=== PATIENT | female | born 1990 | race Caucasian/White ===

== ENCOUNTER 2016-02-27 10:56 | Emergency (ER) | payer MEDICAID ==
[2015-11-14 07:30] VITALS: BMI 18.4
[~2016-02-27 10:56] MED LIST: DILAUDID2 MG PO; HYDROCODON-ACE1 EAC7 PO; IBUPROFEN600 MG PO; KLONOPIN0.5 MG PO; PRENATAL COMPLE1 TAB PO; ZOLOFT50 MG PO
== END 2016-02-27 12:14 | disposition home or self-care (01) ==
LOC: D.ER 10:56
DX: H60.92 Unspecified otitis externa, left ear (principal)

== ENCOUNTER 2016-02-29 06:57 | Emergency (ER) | payer SELFPAY ==
[2015-11-14 07:30] VITALS: BMI 18.4
== END 2016-02-29 08:11 | disposition home or self-care (01) ==
LOC: D.ER 06:57
DX: H60.92 Unspecified otitis externa, left ear (principal); F41.9 Anxiety disorder, unspecified; F17.200 Nicotine dependence, unspecified, uncomplicated

== ENCOUNTER 2016-03-08 11:02 | Emergency (ER) | payer SELFPAY ==
[2015-11-14 07:30] VITALS: BMI 18.4
== END 2016-03-08 12:45 | disposition home or self-care (01) ==
LOC: D.ER 11:02
DX: H60.502 Unspecified acute noninfective otitis externa, left ear (principal); F41.9 Anxiety disorder, unspecified

== ENCOUNTER 2016-03-26 19:28 | Emergency (ER) | payer SELFPAY ==
[2015-11-14 07:30] VITALS: BMI 18.4
[2016-03-26 20:24] LABS: BASOPHILS 0.2 % (0.0-2.0); EOSINOPHILS 6.2 % (0-7); HEMATOCRIT 38.9 % (36.0-48.0); HEMOGLOBIN 12.6 g/dL (12-16); IMMATURE GRANULOCYTES 0.3 % (0-5); MCH 29.2 pg (26.0-34.0); MCHC 32.4 g/dL (31.0-37.0); MEAN PLATELET VOLUME 10.9 fL (7.4-10.4); MONOCYTES 5.7 % (2-11); NEUTROPHILS 60.6 % (40-80); PLATELET COUNT 249 10x3/uL (130-400); RBC 4.32 10x6/uL (4.00-5.40); RDW 14.1 % (11.5-14.5); WBC 16.1 10x3/uL (4.8-10.8)
[2016-03-26 20:28] LABS: APPEARANCE HAZY (CLEAR); BILIRUBIN NEGATIVE (NEGATIVE); COLOR YELLOW (YELLOW); GLUCOSE NEGATIVE (NEGATIVE); KETONE NEGATIVE (NEGATIVE); LEUKOCYTE ESTERASE 1+ (NEGATIVE); NITRITE NEGATIVE (NEGATIVE); PROTEIN NEGATIVE (NEGATIVE); SPECIFIC GRAVITY 1.015 (1.005-1.020); UROBILINOGEN NORMAL (NORMAL)
[2016-03-26 20:30] LABS: RED CELLS - URINE 0-5 /hpf (0-5)
[2016-03-26 20:31] LABS: AMORPHOUS SEDIMENT <1+ /lpf (NONE SEEN); BACTERIA MODERATE /hpf (NONE SEEN); EPITHELIAL CELLS 0-5 /hpf (0-5); MUCUS >1+ /lpf (NONE SEEN)
[2016-03-26 20:47] LABS: ALBUMIN 3.8 g/dL (3.4-5.0); ALKALINE PHOSPHATASE 77 U/L (46-116); ALT (SGPT) 16 U/L (10-68); AMYLASE - SERUM 42 U/L (25-115); BILIRUBIN - TOTAL 0.14 mg/dL (0.2-1.3); CALC OSMOLALITY 279 mosm/kg (275-300); CALCIUM 9.1 mg/dL (8.5-10.1); CHLORIDE - SERUM 105 mmol/L (98-107); CREATININE - SERUM 0.7 mg/dL (0.6-1.3); GLUCOSE 103 mg/dL (74-106); LIPASE 182 U/L (73-393); POTASSIUM - SERUM 4.2 mmol/L (3.5-5.1); PROTEIN - SERUM 7.4 g/dL (6.4-8.2); SODIUM 139 mmol/L (136-145); UREA NITROGEN 18 mg/dL (7-18); eGFR NON AFRICAN AMERICAN > 90 mL/min (90-120)
== END 2016-03-26 21:37 | disposition home or self-care (01) ==
LOC: D.ER 19:28
PROVIDERS: Emergency Medicine
DX: N39.0 Urinary tract infection, site not specified (principal); J02.9 Acute pharyngitis, unspecified; F41.9 Anxiety disorder, unspecified; F17.200 Nicotine dependence, unspecified, uncomplicated

== ENCOUNTER 2016-04-01 12:49 | Emergency (ER) | payer SELFPAY ==
[2015-11-14 07:30] VITALS: BMI 18.4
[2016-04-01 14:07] LABS: APPEARANCE SLT CLOUDY (CLEAR); BACTERIA FEW /hpf (NONE SEEN); BILIRUBIN NEGATIVE (NEGATIVE); COLOR STRAW (YELLOW); EPITHELIAL CELLS 0-5 /hpf (0-5); GLUCOSE NEGATIVE (NEGATIVE); KETONE NEGATIVE (NEGATIVE); LEUKOCYTE ESTERASE 2+ (NEGATIVE); MUCUS <1+ /lpf (NONE SEEN); NITRITE NEGATIVE (NEGATIVE); PROTEIN NEGATIVE (NEGATIVE); UROBILINOGEN NORMAL (NORMAL); WHITE CELLS - URINE 0-5 /hpf (0-5)
[2016-04-01 17:20] LABS: HCG URINE NEGATIVE (NEGATIVE)
== END 2016-04-01 18:32 | disposition home or self-care (01) ==
LOC: D.ER 12:49
PROVIDERS: Emergency Medicine
DX: N20.1 Calculus of ureter (principal); N39.0 Urinary tract infection, site not specified; F17.200 Nicotine dependence, unspecified, uncomplicated; F41.9 Anxiety disorder, unspecified

== ENCOUNTER 2016-05-14 12:34 | Emergency (ER) | payer SELFPAY ==
[2015-11-14 07:30] VITALS: BMI 18.4
[2016-05-14 14:13] LABS: BASOPHILS 0.2 % (0.0-2.0); EOSINOPHILS 4.8 % (0-7); HEMATOCRIT 40.2 % (36.0-48.0); HEMOGLOBIN 13.1 g/dL (12-16); IMMATURE GRANULOCYTES 0.1 % (0-5); MCH 28.3 pg (26.0-34.0); MCHC 32.6 g/dL (31.0-37.0); MCV 86.8 fL (80.0-100.0); MEAN PLATELET VOLUME 10.6 fL (7.4-10.4); MONOCYTES 4.5 % (2-11); NEUTROPHILS 70.4 % (40-80); PLATELET COUNT 225 10x3/uL (130-400); RBC 4.63 10x6/uL (4.00-5.40); RDW 14.2 % (11.5-14.5); WBC 13.7 10x3/uL (4.8-10.8)
[2016-05-14 14:27] LABS: ALBUMIN 3.8 g/dL (3.4-5.0); ALKALINE PHOSPHATASE 82 U/L (46-116); ALT (SGPT) 20 U/L (10-68); BILIRUBIN - TOTAL 0.28 mg/dL (0.2-1.3); CALC OSMOLALITY 274 mosm/kg (275-300); CALCIUM 9.1 mg/dL (8.5-10.1); CHLORIDE - SERUM 103 mmol/L (98-107); CREATININE - SERUM 0.7 mg/dL (0.6-1.3); GLUCOSE 113 mg/dL (74-106); POTASSIUM - SERUM 3.8 mmol/L (3.5-5.1); PROTEIN - SERUM 7.9 g/dL (6.4-8.2); SODIUM 138 mmol/L (136-145); UREA NITROGEN 7 mg/dL (7-18); eGFR NON AFRICAN AMERICAN > 90 mL/min (90-120)
[2016-05-14 16:21] LABS: APPEARANCE CLOUDY (CLEAR); BILIRUBIN NEGATIVE (NEGATIVE); COLOR STRAW (YELLOW); GLUCOSE NEGATIVE (NEGATIVE); KETONE NEGATIVE (NEGATIVE); LEUKOCYTE ESTERASE 2+ (NEGATIVE); NITRITE NEGATIVE (NEGATIVE); PROTEIN TRACE mg/dL (NEGATIVE); UROBILINOGEN NORMAL (NORMAL)
[2016-05-14 16:22] LABS: HCG URINE NEGATIVE (NEGATIVE)
[2016-05-14 16:26] LABS: BACTERIA FEW /hpf (NONE SEEN); YEAST <1+ /hpf (NONE SEEN)
== END 2016-05-14 18:10 | disposition home or self-care (01) ==
LOC: D.ER 12:34
PROVIDERS: Family Medicine; Physician Assistant Medical
DX: N39.0 Urinary tract infection, site not specified (principal); J04.10 Acute tracheitis without obstruction; F17.200 Nicotine dependence, unspecified, uncomplicated

== ENCOUNTER 2016-06-16 11:52 | Emergency (ER) | payer SELFPAY ==
[2015-11-14 07:30] VITALS: BMI 18.4
== END 2016-06-16 13:10 | disposition home or self-care (01) ==
LOC: D.ER 11:52
DX: S93.402A Sprain of unspecified ligament of left ankle, initial encounter (principal); X58.XXXA Exposure to other specified factors, initial encounter; Y93.89 Activity, other specified; Y92.89 Other specified places as the place of occurrence of the external cause; F41.9 Anxiety disorder, unspecified

== ENCOUNTER 2016-07-12 09:00 | Emergency (ER) | payer SELFPAY ==
[2015-11-14 07:30] VITALS: BMI 18.4
[2016-07-12 09:49] LABS: BASOPHILS 0.3 % (0-2); EOSINOPHILS 6.5 % (0-7); HEMATOCRIT 41.8 % (36.0-48.0); HEMOGLOBIN 13.7 g/dL (12-16); IMMATURE GRANULOCYTES 0.3 % (0-5); LYMPHOCYTES 16.6 % (15-50); MCH 28.9 pg (26.0-34.0); MCHC 32.8 g/dL (31.0-37.0); MCV 88.2 fL (80.0-100.0); MEAN PLATELET VOLUME 10.7 fL (7.4-10.4); MONOCYTES 4.1 % (2-11); NEUTROPHILS 72.2 % (40-80); PLATELET COUNT 235 10x3/uL (130-400); RBC 4.74 10x6/uL (4.00-5.40); RDW 14.5 % (11.5-14.5); WBC 13.9 10x3/uL (4.8-10.8)
[2016-07-12 09:53] LABS: APPEARANCE HAZY (CLEAR); BILIRUBIN NEGATIVE (NEGATIVE); COLOR YELLOW (YELLOW); GLUCOSE NEGATIVE (NEGATIVE); KETONE NEGATIVE (NEGATIVE); LEUKOCYTE ESTERASE 2+ (NEGATIVE); NITRITE NEGATIVE (NEGATIVE); PROTEIN NEGATIVE (NEGATIVE); SPECIFIC GRAVITY 1.005 (1.005-1.020); UROBILINOGEN NORMAL (NORMAL)
[2016-07-12 09:54] LABS: BACTERIA MODERATE /hpf (NONE SEEN); MUCUS <1+ /lpf (NONE SEEN)
[2016-07-12 10:02] LABS: ALBUMIN 3.4 g/dL (3.4-5.0); ALKALINE PHOSPHATASE 78 U/L (46-116); ALT (SGPT) 21 U/L (10-68); BILIRUBIN - TOTAL 0.18 mg/dL (0.2-1.3); CALC OSMOLALITY 272 mosm/kg (275-300); CALCIUM 8.7 mg/dL (8.5-10.1); CARBON DIOXIDE 23.7 mmol/L (21.0-32.0); CHLORIDE - SERUM 105 mmol/L (98-107); CREATININE - SERUM 0.7 mg/dL (0.6-1.3); GLUCOSE 94 mg/dL (74-106); POTASSIUM - SERUM 4.1 mmol/L (3.5-5.1); PROTEIN - SERUM 7.2 g/dL (6.4-8.2); SODIUM 137 mmol/L (136-145); UREA NITROGEN 9 mg/dL (7-18); eGFR NON AFRICAN AMERICAN > 90 mL/min (90-120)
[2016-07-12 10:19] LABS: HCG SERUM NEGATIVE (NEGATIVE)
== END 2016-07-12 10:57 | disposition home or self-care (01) ==
LOC: D.ER 09:00
PROVIDERS: Emergency Medicine
DX: N39.0 Urinary tract infection, site not specified (principal); N23 Unspecified renal colic; F17.200 Nicotine dependence, unspecified, uncomplicated

== ENCOUNTER 2016-08-16 10:20 | Emergency (ER) | payer SELFPAY ==
[2015-11-14 07:30] VITALS: BMI 18.4
== END 2016-08-16 11:51 | disposition home or self-care (01) ==
LOC: D.ER 10:20
DX: S39.012A Strain of muscle, fascia and tendon of lower back, initial encounter (principal); X58.XXXA Exposure to other specified factors, initial encounter; M62.830 Muscle spasm of back; F17.200 Nicotine dependence, unspecified, uncomplicated

== ENCOUNTER 2016-08-22 08:50 | Emergency (ER) | payer SELFPAY ==
[2015-11-14 07:30] VITALS: BMI 18.4
== END 2016-08-22 10:13 | disposition home or self-care (01) ==
LOC: D.ER 08:50
DX: M54.6 Pain in thoracic spine (principal)

== ENCOUNTER 2016-09-06 09:33 | Emergency (ER) | payer SELFPAY ==
[2015-11-14 07:30] VITALS: BMI 18.4
[2016-09-06 10:10] LABS: APPEARANCE CLOUDY (CLEAR); BILIRUBIN NEGATIVE (NEGATIVE); COLOR YELLOW (YELLOW); GLUCOSE NEGATIVE (NEGATIVE); KETONE NEGATIVE (NEGATIVE); LEUKOCYTE ESTERASE 2+ (NEGATIVE); NITRITE NEGATIVE (NEGATIVE); PROTEIN NEGATIVE (NEGATIVE); SPECIFIC GRAVITY 1.015 (1.005-1.020); UROBILINOGEN NORMAL (NORMAL)
[2016-09-06 10:19] LABS: WHITE CELLS - URINE 25-50 /hpf (0-5)
[2016-09-06 10:19] LABS: BASOPHILS 0.2 % (0-2); EOSINOPHILS 3.6 % (0-7); HEMATOCRIT 41.6 % (36.0-48.0); HEMOGLOBIN 13.8 g/dL (12-16); IMMATURE GRANULOCYTES 0.4 % (0-5); LYMPHOCYTES 12.9 % (15-50); MCH 29.3 pg (26.0-34.0); MCHC 33.2 g/dL (31.0-37.0); MCV 88.3 fL (80.0-100.0); MEAN PLATELET VOLUME 10.9 fL (7.4-10.4); MONOCYTES 5.6 % (2-11); NEUTROPHILS 77.3 % (40-80); PLATELET COUNT 236 10x3/uL (130-400); RBC 4.71 10x6/uL (4.00-5.40); WBC 16.1 10x3/uL (4.8-10.8)
[2016-09-06 10:20] LABS: BACTERIA MANY /hpf (NONE SEEN); HYALINE CAST OCC /lpf (NONE SEEN); MUCUS >1+ /lpf (NONE SEEN); RED CELLS - URINE 0-5 /hpf (0-5); YEAST >1+ /hpf (NONE SEEN)
[2016-09-06 10:37] LABS: ALBUMIN 3.6 g/dL (3.4-5.0); ALKALINE PHOSPHATASE 75 U/L (46-116); ALT (SGPT) 37 U/L (10-68); CALC OSMOLALITY 272 mosm/kg (275-300); CALCIUM 8.9 mg/dL (8.5-10.1); CARBON DIOXIDE 19.8 mmol/L (21.0-32.0); CHLORIDE - SERUM 105 mmol/L (98-107); CREATININE - SERUM 0.6 mg/dL (0.6-1.3); GLUCOSE 107 mg/dL (74-106); POTASSIUM - SERUM 3.9 mmol/L (3.5-5.1); PROTEIN - SERUM 7.8 g/dL (6.4-8.2); SODIUM 137 mmol/L (136-145); UREA NITROGEN 11 mg/dL (7-18); eGFR NON AFRICAN AMERICAN > 90 mL/min (90-120)
== END 2016-09-06 12:02 | disposition home or self-care (01) ==
LOC: D.ER 09:33
PROVIDERS: Emergency Medicine
DX: N10 Acute pyelonephritis (principal); R50.9 Fever, unspecified; R11.2 Nausea with vomiting, unspecified

== ENCOUNTER 2016-09-20 16:54 | Emergency (ER) | payer SELFPAY ==
[2015-11-14 07:30] VITALS: BMI 18.4
== END 2016-09-20 19:08 | disposition home or self-care (01) ==
LOC: D.ER 16:54
DX: S60.212A Contusion of left wrist, initial encounter (principal); W01.0XXA Fall on same level from slipping, tripping and stumbling without subsequent striking against object, initial encounter; Y93.89 Activity, other specified; Y92.89 Other specified places as the place of occurrence of the external cause

== ENCOUNTER 2016-10-12 11:54 | Emergency (ER) | payer SELFPAY ==
[2015-11-14 07:30] VITALS: BMI 18.4
[2016-10-12 12:33] LABS: BASOPHILS 0.4 % (0-2); EOSINOPHILS 6.2 % (0-7); HEMATOCRIT 39.2 % (36.0-48.0); IMMATURE GRANULOCYTES 0.2 % (0-5); LYMPHOCYTES 26.8 % (15-50); MCH 29.7 pg (26.0-34.0); MCHC 33.2 g/dL (31.0-37.0); MCV 89.5 fL (80.0-100.0); MEAN PLATELET VOLUME 10.8 fL (7.4-10.4); MONOCYTES 3.5 % (2-11); NEUTROPHILS 62.9 % (40-80); PLATELET COUNT 249 10x3/uL (130-400); RBC 4.38 10x6/uL (4.00-5.40)
[2016-10-12 12:50] LABS: ALBUMIN 3.8 g/dL (3.4-5.0); ALKALINE PHOSPHATASE 68 U/L (46-116); ALT (SGPT) 19 U/L (10-68); CALC OSMOLALITY 276 mosm/kg (275-300); CALCIUM 8.6 mg/dL (8.5-10.1); CARBON DIOXIDE 23.6 mmol/L (21.0-32.0); CHLORIDE - SERUM 104 mmol/L (98-107); CREATININE - SERUM 0.7 mg/dL (0.6-1.3); GLUCOSE 101 mg/dL (74-106); POTASSIUM - SERUM 3.8 mmol/L (3.5-5.1); PROTEIN - SERUM 7.4 g/dL (6.4-8.2); SODIUM 139 mmol/L (136-145); UREA NITROGEN 11 mg/dL (7-18); eGFR NON AFRICAN AMERICAN > 90 mL/min (90-120)
[2016-10-12 13:52] LABS: APPEARANCE CLEAR (CLEAR); BILIRUBIN NEGATIVE (NEGATIVE); COLOR YELLOW (YELLOW); GLUCOSE NEGATIVE (NEGATIVE); KETONE NEGATIVE (NEGATIVE); LEUKOCYTE ESTERASE TRACE (NEGATIVE); NITRITE NEGATIVE (NEGATIVE); PROTEIN NEGATIVE (NEGATIVE); RED CELLS - URINE 0-5 /hpf (0-5); UROBILINOGEN NORMAL (NORMAL); WHITE CELLS - URINE 0-5 /hpf (0-5)
[2016-10-12 13:53] LABS: BACTERIA MODERATE /hpf (NONE SEEN); EPITHELIAL CELLS 0-5 /hpf (0-5); MUCUS <1+ /lpf (NONE SEEN)
[2016-10-12 14:05] LABS: HCG SERUM NEGATIVE (NEGATIVE)
== END 2016-10-12 16:30 | disposition home or self-care (01) ==
LOC: D.ER 11:54
PROVIDERS: Emergency Medicine; Physician Assistant
DX: R10.9 Unspecified abdominal pain (principal); R30.0 Dysuria

== ENCOUNTER 2016-11-04 11:43 | Emergency (ER) | payer SELFPAY ==
[2015-11-14 07:30] VITALS: BMI 18.4
[2016-11-04 13:00] LABS: BASOPHILS 0.2 % (0-2); EOSINOPHILS 9.2 % (0-7); HEMATOCRIT 40.3 % (36.0-48.0); HEMOGLOBIN 13.4 g/dL (12-16); IMMATURE GRANULOCYTES 0.5 % (0-5); LYMPHOCYTES 28.9 % (15-50); MCH 29.7 pg (26.0-34.0); MCHC 33.3 g/dL (31.0-37.0); MCV 89.4 fL (80.0-100.0); MEAN PLATELET VOLUME 11.3 fL (7.4-10.4); MONOCYTES 4.7 % (2-11); NEUTROPHILS 56.5 % (40-80); PLATELET COUNT 205 10x3/uL (130-400); RBC 4.51 10x6/uL (4.00-5.40); RDW 14.3 % (11.5-14.5); WBC 10.8 10x3/uL (4.8-10.8)
[2016-11-04 13:25] LABS: HCG URINE NEGATIVE (NEGATIVE)
[2016-11-04 13:45] LABS: UDS - AMPHET NEGATIVE QUAL (NEGATIVE); UDS - BARB NEGATIVE QUAL (NEGATIVE); UDS - BENZO NEGATIVE QUAL (NEGATIVE); UDS - COCAINE NEGATIVE QUAL (NEGATIVE); UDS - METH NEGATIVE QUAL (NEGATIVE); UDS - OPIATE POSITIVE QUAL (NEGATIVE); UDS - PCP NEGATIVE QUAL (NEGATIVE); UDS - THC NEGATIVE QUAL (NEGATIVE)
[2016-11-04 13:52] LABS: APPEARANCE HAZY (CLEAR); BACTERIA FEW /hpf (NONE SEEN); BILIRUBIN NEGATIVE (NEGATIVE); COLOR YELLOW (YELLOW); EPITHELIAL CELLS 0-5 /hpf (0-5); GLUCOSE NEGATIVE (NEGATIVE); KETONE NEGATIVE (NEGATIVE); LEUKOCYTE ESTERASE TRACE (NEGATIVE); MUCUS >1+ /lpf (NONE SEEN); NITRITE NEGATIVE (NEGATIVE); PROTEIN NEGATIVE (NEGATIVE); RED CELLS - URINE 25-50 /hpf (0-5); SPECIFIC GRAVITY 1.015 (1.005-1.020); UROBILINOGEN NORMAL (NORMAL); WHITE CELLS - URINE 0-5 /hpf (0-5)
[2016-11-04 13:57] LABS: ALBUMIN 3.6 g/dL (3.4-5.0); ALKALINE PHOSPHATASE 71 U/L (46-116); ALT (SGPT) 19 U/L (10-68); BILIRUBIN - TOTAL 0.22 mg/dL (0.2-1.3); CALC OSMOLALITY 274 mosm/kg (275-300); CALCIUM 8.6 mg/dL (8.5-10.1); CARBON DIOXIDE 27.2 mmol/L (21.0-32.0); CHLORIDE - SERUM 104 mmol/L (98-107); CREATININE - SERUM 0.7 mg/dL (0.6-1.3); GLUCOSE 86 mg/dL (74-106); POTASSIUM - SERUM 3.9 mmol/L (3.5-5.1); PROTEIN - SERUM 7.4 g/dL (6.4-8.2); SODIUM 138 mmol/L (136-145); UREA NITROGEN 12 mg/dL (7-18); eGFR NON AFRICAN AMERICAN > 90 mL/min (90-120)
== END 2016-11-04 15:57 | disposition home or self-care (01) ==
LOC: D.ER 11:43
PROVIDERS: Emergency Medicine; Nurse Practitioner Family
DX: M54.5 Low back pain (principal); N39.0 Urinary tract infection, site not specified

== ENCOUNTER 2016-11-30 12:01 | Emergency (ER) | payer SELFPAY ==
[2015-11-14 07:30] VITALS: BMI 18.4
== END 2016-11-30 13:13 | disposition home or self-care (01) ==
LOC: D.ER 12:01
DX: K08.89 Other specified disorders of teeth and supporting structures (principal); K02.9 Dental caries, unspecified

== ENCOUNTER 2017-01-13 11:05 | Emergency (ER) | payer SELFPAY ==
[2015-11-14 07:30] VITALS: BMI 18.4
[2017-01-13 11:57] LABS: APPEARANCE SLT CLOUDY (CLEAR); BILIRUBIN NEGATIVE (NEGATIVE); COLOR DK YELLOW (YELLOW); GLUCOSE NEGATIVE (NEGATIVE); KETONE NEGATIVE (NEGATIVE); NITRITE NEGATIVE (NEGATIVE); PROTEIN NEGATIVE (NEGATIVE); SPECIFIC GRAVITY 1.015 (1.005-1.020); UROBILINOGEN NORMAL (NORMAL)
[2017-01-13 12:04] LABS: BACTERIA MANY /hpf (NONE SEEN); MUCUS >1+ /lpf (NONE SEEN)
== END 2017-01-13 13:20 | disposition home or self-care (01) ==
LOC: D.ER 11:05
PROVIDERS: Emergency Medicine
DX: R10.9 Unspecified abdominal pain (principal); R31.9 Hematuria, unspecified; R11.2 Nausea with vomiting, unspecified; N12 Tubulo-interstitial nephritis, not specified as acute or chronic

== ENCOUNTER 2017-01-14 16:03 | Emergency (ER) | payer SELFPAY ==
[2015-11-14 07:30] VITALS: BMI 18.4
[2017-01-14 16:48] LABS: APPEARANCE SLT CLOUDY (CLEAR); BACTERIA MODERATE /hpf (NONE SEEN); BILIRUBIN NEGATIVE (NEGATIVE); COLOR YELLOW (YELLOW); GLUCOSE NEGATIVE (NEGATIVE); KETONE NEGATIVE (NEGATIVE); NITRITE NEGATIVE (NEGATIVE); PROTEIN NEGATIVE (NEGATIVE); UROBILINOGEN NORMAL (NORMAL)
[2017-01-14 16:49] LABS: MUCUS >1+ /lpf (NONE SEEN); YEAST <1+ /hpf (NONE SEEN)
[2017-01-14 16:50] LABS: BASOPHILS 0.2 % (0-2); EOSINOPHILS 3.2 % (0-7); HEMATOCRIT 41.4 % (36.0-48.0); HEMOGLOBIN 13.7 g/dL (12-16); IMMATURE GRANULOCYTES 0.2 % (0-5); LYMPHOCYTES 24.2 % (15-50); MCH 29.8 pg (26.0-34.0); MCHC 33.1 g/dL (31.0-37.0); MCV 90.2 fL (80.0-100.0); MEAN PLATELET VOLUME 11.3 fL (7.4-10.4); MONOCYTES 4.2 % (2-11); PLATELET COUNT 233 10x3/uL (130-400); RBC 4.59 10x6/uL (4.00-5.40); RDW 13.9 % (11.5-14.5); WBC 13.7 10x3/uL (4.8-10.8)
[2017-01-14 16:52] LABS: UDS - AMPHET NEGATIVE QUAL (NEGATIVE); UDS - BARB NEGATIVE QUAL (NEGATIVE); UDS - BENZO NEGATIVE QUAL (NEGATIVE); UDS - COCAINE NEGATIVE QUAL (NEGATIVE); UDS - OPIATE POSITIVE QUAL (NEGATIVE); UDS - PCP NEGATIVE QUAL (NEGATIVE); UDS - THC NEGATIVE QUAL (NEGATIVE)
[2017-01-14 17:03] LABS: ALKALINE PHOSPHATASE 80 U/L (46-116); ALT (SGPT) 13 U/L (10-68); CALC OSMOLALITY 271 mosm/kg (275-300); CALCIUM 8.6 mg/dL (8.5-10.1); CARBON DIOXIDE 24.7 mmol/L (21.0-32.0); CHLORIDE - SERUM 101 mmol/L (98-107); CREATININE - SERUM 0.9 mg/dL (0.6-1.3); GLUCOSE 96 mg/dL (74-106); POTASSIUM - SERUM 3.5 mmol/L (3.5-5.1); PROTEIN - SERUM 8.3 g/dL (6.4-8.2); SODIUM 135 mmol/L (136-145); UREA NITROGEN 18 mg/dL (7-18); eGFR NON AFRICAN AMERICAN 81 mL/min (90-120)
[2017-01-14 17:05] LABS: HCG SERUM NEGATIVE (NEGATIVE)
== END 2017-01-15 01:14 | disposition home or self-care (01) ==
LOC: D.ER 16:03
PROVIDERS: Emergency Medicine
DX: T40.2X2A Poisoning by other opioids, intentional self-harm, initial encounter (principal); Y92.029 Unspecified place in mobile home as the place of occurrence of the external cause; F33.9 Major depressive disorder, recurrent, unspecified; F11.10 Opioid abuse, uncomplicated; N39.0 Urinary tract infection, site not specified

== ENCOUNTER 2017-03-17 17:28 | Emergency (ER) | payer SELFPAY ==
[2015-11-14 07:30] VITALS: BMI 18.4
[2017-03-17 18:29] LABS: BASOPHILS 0.2 % (0-2); EOSINOPHILS 2.6 % (0-7); HEMATOCRIT 36.8 % (36.0-48.0); IMMATURE GRANULOCYTES 0.4 % (0-5); LYMPHOCYTES 21.9 % (15-50); MCH 28.7 pg (26.0-34.0); MCHC 32.6 g/dL (31.0-37.0); MEAN PLATELET VOLUME 10.7 fL (7.4-10.4); NEUTROPHILS 68.9 % (40-80); PLATELET COUNT 254 10x3/uL (130-400); RBC 4.18 10x6/uL (4.00-5.40); WBC 13.7 10x3/uL (4.8-10.8)
[2017-03-17 18:41] LABS: APPEARANCE CLEAR (CLEAR); BACTERIA FEW /hpf (NONE SEEN); BILIRUBIN NEGATIVE (NEGATIVE); COLOR YELLOW (YELLOW); EPITHELIAL CELLS 0-5 /hpf (0-5); GLUCOSE NEGATIVE (NEGATIVE); KETONE NEGATIVE (NEGATIVE); NITRITE NEGATIVE (NEGATIVE); PROTEIN NEGATIVE (NEGATIVE); RED CELLS - URINE 0-5 /hpf (0-5); UROBILINOGEN NORMAL (NORMAL)
[2017-03-17 18:52] LABS: ALBUMIN 3.6 g/dL (3.4-5.0); ALKALINE PHOSPHATASE 71 U/L (46-116); ALT (SGPT) 20 U/L (10-68); BILIRUBIN - TOTAL 0.21 mg/dL (0.2-1.3); CALC OSMOLALITY 277 mosm/kg (275-300); CALCIUM 8.7 mg/dL (8.5-10.1); CARBON DIOXIDE 26.8 mmol/L (21.0-32.0); CHLORIDE - SERUM 105 mmol/L (98-107); CREATININE - SERUM 0.7 mg/dL (0.6-1.3); GLUCOSE 91 mg/dL (74-106); POTASSIUM - SERUM 3.7 mmol/L (3.5-5.1); PROTEIN - SERUM 7.3 g/dL (6.4-8.2); SODIUM 140 mmol/L (136-145); UREA NITROGEN 9 mg/dL (7-18); eGFR NON AFRICAN AMERICAN > 90 mL/min (90-120)
[2017-03-17 19:22] LABS: HCG - QUANTITATIVE (MATERNAL) 1141 mIU/mL
== END 2017-03-17 22:23 | disposition home or self-care (01) ==
LOC: D.ER 17:28
PROVIDERS: Family Medicine
DX: O26.899 Other specified pregnancy related conditions, unspecified trimester (principal); Z3A.00 Weeks of gestation of pregnancy not specified; R10.31 Right lower quadrant pain

== ENCOUNTER → 2017-06-04 10:52 | Outpatient (CLI) | payer MEDICAID ==
[2015-11-14 07:30] VITALS: BMI 18.4
[2017-06-04 11:28] LABS: BASOPHILS 0.1 % (0-2); EOSINOPHILS 1.3 % (0-7); HEMATOCRIT 35.6 % (36.0-48.0); HEMOGLOBIN 11.9 g/dL (12-16); IMMATURE GRANULOCYTES 0.2 % (0-5); LYMPHOCYTES 19.3 % (15-50); MCH 29.9 pg (26.0-34.0); MCHC 33.4 g/dL (31.0-37.0); MCV 89.4 fL (80.0-100.0); MEAN PLATELET VOLUME 10.8 fL (7.4-10.4); MONOCYTES 4.5 % (2-11); NEUTROPHILS 74.6 % (40-80); PLATELET COUNT 213 10x3/uL (130-400); RBC 3.98 10x6/uL (4.00-5.40); RDW 14.9 % (11.5-14.5); WBC 12.1 10x3/uL (4.8-10.8)
[2017-06-04 11:35] LABS: APPEARANCE HAZY (CLEAR); BACTERIA MODERATE /hpf (NONE SEEN); BILIRUBIN NEGATIVE (NEGATIVE); COLOR YELLOW (YELLOW); GLUCOSE NEGATIVE (NEGATIVE); KETONE NEGATIVE (NEGATIVE); MUCUS >1+ /lpf (NONE SEEN); NITRITE NEGATIVE (NEGATIVE); PROTEIN NEGATIVE (NEGATIVE); RED CELLS - URINE 0-5 /hpf (0-5); SPECIFIC GRAVITY 1.015 (1.005-1.020); UROBILINOGEN NORMAL (NORMAL); YEAST OCC /hpf (NONE SEEN)
== END | disposition home or self-care (01) ==
LOC: D.LDO 10:52
PROVIDERS: Obstetrics & Gynecology
DX: O26.892 Other specified pregnancy related conditions, second trimester (principal); Z3A.16 16 weeks gestation of pregnancy; R55 Syncope and collapse

== ENCOUNTER → 2017-10-23 01:15 | Outpatient (CLI) | payer MEDICAID ==
[2015-11-14 07:30] VITALS: BMI 18.4
[2017-10-23 01:59] LABS: APPEARANCE CLEAR (CLEAR); BILIRUBIN NEGATIVE (NEGATIVE); COLOR YELLOW (YELLOW); GLUCOSE NEGATIVE (NEGATIVE); KETONE NEGATIVE (NEGATIVE); NITRITE NEGATIVE (NEGATIVE); PROTEIN NEGATIVE (NEGATIVE); SPECIFIC GRAVITY 1.015 (1.005-1.020); UROBILINOGEN NORMAL (NORMAL)
[2017-10-23 02:07] LABS: UDS - AMPHET NEGATIVE QUAL (NEGATIVE); UDS - BARB NEGATIVE QUAL (NEGATIVE); UDS - BENZO NEGATIVE QUAL (NEGATIVE); UDS - COCAINE NEGATIVE QUAL (NEGATIVE); UDS - OPIATE NEGATIVE QUAL (NEGATIVE); UDS - PCP NEGATIVE QUAL (NEGATIVE); UDS - THC NEGATIVE QUAL (NEGATIVE)
== END | disposition home or self-care (01) ==
LOC: D.LDO 01:15
PROVIDERS: Obstetrics & Gynecology
DX: O26.893 Other specified pregnancy related conditions, third trimester (principal); Z3A.36 36 weeks gestation of pregnancy; M54.9 Dorsalgia, unspecified; W17.81XA Fall down embankment (hill), initial encounter; Y93.89 Activity, other specified; Y92.89 Other specified places as the place of occurrence of the external cause

== ENCOUNTER → 2017-11-02 15:38 | Outpatient (CLI) | payer MEDICAID ==
[2015-11-14 07:30] VITALS: BMI 18.4
[2017-11-02 16:33] LABS: APPEARANCE CLEAR (CLEAR); BILIRUBIN NEGATIVE (NEGATIVE); COLOR YELLOW (YELLOW); GLUCOSE NEGATIVE (NEGATIVE); KETONE NEGATIVE (NEGATIVE); NITRITE NEGATIVE (NEGATIVE); PROTEIN NEGATIVE (NEGATIVE); SPECIFIC GRAVITY 1.015 (1.005-1.020); UROBILINOGEN NORMAL (NORMAL)
[2017-11-02 16:34] LABS: EPITHELIAL CELLS 0-5 /hpf (0-5); RED CELLS - URINE OCC /hpf (0-5); WHITE CELLS - URINE 0-5 /hpf (0-5)
[2017-11-02 16:35] LABS: BACTERIA FEW /hpf (NONE SEEN)
== END | disposition home or self-care (01) ==
LOC: D.LDO 15:38
PROVIDERS: Obstetrics & Gynecology
DX: O26.893 Other specified pregnancy related conditions, third trimester (principal); Z3A.37 37 weeks gestation of pregnancy

== ENCOUNTER → 2017-11-10 00:42 | Outpatient (CLI) | payer MEDICAID ==
[2015-11-14 07:30] VITALS: BMI 18.4
[~2017-11-10 00:42] MED LIST changes: +ACEROLA C500 MG PO; +ACETAMINOPHEN500 M1 PO; +FERROUS SULFAT325 MG PO; +MOTRIN600 MG PO; +PRENAVITE1 TAB PO
== END | disposition home or self-care (01) ==
LOC: D.LDO 00:42
DX: O26.899 Other specified pregnancy related conditions, unspecified trimester (principal)

== ENCOUNTER 2017-11-11 20:33 | Inpatient (IN) | payer MEDICAID ==
[~2017-11-11] VITALS: Ht 167.6 cm; Wt 120.7 kg
--- NOTE | ~2017-11-11 | OP ---
PATIENT NAME: PRIETO ANDREWS MEDICAL RECORD: [id number] :89 LOCATION:[id number] ADMISSION DATE:11/11/17 SURGEON: JASPREET BOWEN MD DATE OF OPERATION: 11/12/2017 PREDELIVERY DIAGNOSIS: at term. POSTDELIVERY DIAGNOSIS: Mother delivered at term. PROCEDURE: Induction of labor with vaginal delivery. ATTENDING: Jaspreet Bowen MD ANESTHETIC: Continuous lumbar epidural. FINDINGS: Viable male infant in an LIONEL presentation, Apgars of 9 and 9. Weight is 9 pounds 4 ounces. Placenta spontaneous and intact without significant laceration requiring repair. The patient has uterine atony occurring immediately , resolved with Methergine and an oral dose of misoprostol. ESTIMATED BLOOD LOSS: 400 cc. DISPOSITION: Mother and are recovered in the delivery room. TRANSINT:[id number] Voice Confirmation ID: [id number] DOCUMENT ID: [id number] JASPREET BOWEN MD at 1133 CC: [id number] DICTATION DATE: 11/12/17 1407 SCREWMAKER AUTOMATIC: 11/12/17 1415 DIS IN 11/13/17 [facility] [address] [place] [address]
[~2017-11-11 20:33] MED LIST changes: -ACEROLA C500 MG PO; -ACETAMINOPHEN500 M1 PO; -FERROUS SULFAT325 MG PO; -MOTRIN600 MG PO; -PRENAVITE1 TAB PO
[2017-11-11] MEDS ORDERED: PRENAVITE1 TAB PO (20:57)
[2017-11-11 20:58] VITALS: BP 134/83; Ht 167.6 cm; Wt 120.7 kg
[2017-11-11 22:04] LABS: HEMATOCRIT 21.3 % (36.0-48.0); MCHC 32.4 g/dL (31.0-37.0); MCV 86.6 fL (80.0-100.0); MEAN PLATELET VOLUME 11.5 fL (7.4-10.4); RBC 2.46 10x6/uL (4.00-5.40); RDW 15.4 % (11.5-14.5)
[2017-11-11 22:09] LABS: APPEARANCE CLOUDY (CLEAR); BILIRUBIN NEGATIVE (NEGATIVE); COLOR DK YELLOW (YELLOW); GLUCOSE NEGATIVE (NEGATIVE); HEMOGLOBIN 6.9 g/dL (12-16); KETONE NEGATIVE (NEGATIVE); NITRITE NEGATIVE (NEGATIVE); PH 5.5 (5.0-6.0); PROTEIN TRACE mg/dL (NEGATIVE); UROBILINOGEN NORMAL (NORMAL)
[2017-11-11 22:13] LABS: BACTERIA MANY /hpf (NONE SEEN); HYALINE CAST 0-5 /lpf (NONE SEEN)
[2017-11-11 22:43] LABS: HEMATOCRIT 34.7 % (36.0-48.0); HEMOGLOBIN 11.4 g/dL (12-16); MCH 28.3 pg (26.0-34.0); MCHC 32.9 g/dL (31.0-37.0); MCV 86.1 fL (80.0-100.0); MEAN PLATELET VOLUME 11.4 fL (7.4-10.4); RBC 4.03 10x6/uL (4.00-5.40); RDW 15.5 % (11.5-14.5); WBC 12.3 10x3/uL (4.8-10.8)
[2017-11-12 19:38] VITALS: BP 138/63
[2017-11-13 06:46] LABS: HEMATOCRIT 31.1 % (36.0-48.0); MCH 27.9 pg (26.0-34.0); MCHC 32.2 g/dL (31.0-37.0); MCV 86.9 fL (80.0-100.0); MEAN PLATELET VOLUME 11.2 fL (7.4-10.4); RBC 3.58 10x6/uL (4.00-5.40); RDW 15.7 % (11.5-14.5); WBC 12.7 10x3/uL (4.8-10.8)
[2017-11-13] MEDS ORDERED: MOTRIN600 MG PO (13:19)
[2017-11-13] MEDS ORDERED: FERROUS SULFAT325 MG PO (13:19)
[2017-11-13] MEDS ORDERED: ACETAMINOPHEN500 M1 PO (13:19)
[2017-11-13] MEDS ORDERED: ACEROLA C500 MG PO (13:19)
[2017-11-16 03:12] LABS: RAPID PLASMA REAGIN Non Reactive (Non Reactive)
== END 2017-11-13 16:15 | disposition home or self-care (01) | DRG 775 ==
LOC: D.LDO 20:33 → D.LD 20:56 → D.LDO 21:05 → D.LD 21:06
PROVIDERS: Obstetrics & Gynecology
PROC: 10E0XZZ Delivery of Products of Conception, External Approach (ICD-10-PCS; principal; 2017-11-12)
DX: O99.344 Other mental disorders complicating childbirth (principal); Z3A.39 39 weeks gestation of pregnancy; Z37.0 Single live birth; F41.9 Anxiety disorder, unspecified; O99.02 Anemia complicating childbirth; Z87.891 Personal history of nicotine dependence

== ENCOUNTER → 2018-07-29 11:03 | Outpatient (CLI) | payer OTHER ==
[2017-11-11 20:58] VITALS: BMI 43.0
[~2018-07-29 11:03] MED LIST changes: +ACEROLA C500 MG PO; +ACETAMINOPHEN500 M1 PO; +FERROUS SULFAT325 MG PO; +MOTRIN600 MG PO; +PRENAVITE1 TAB PO
--- NOTE | 2018-08-01 15:03 | EC ---
PATIENT:PRIETO ANDREWS DATE OF SERVICE: 07/29/18 SEX: F MEDICAL RECORD: [id number] DATE OF : [birth year] LOCATION:D.[facility] AGE OF PATIENT: 28 ADMISSION DATE: 07/29/18 REFERRING PHYSICIAN: INTERPRETING PHYSICIAN: JERAMY MALAGON MD ECHOCARDIOGRAM REPORT ECHO CHARGES 4 ECHO COMPLETE Date: 07/29/18 CLINICAL DIAGNOSIS: PVC'S/BRADYCARDIA/MURMUR ECHOCARDIOGRAPHIC MEASUREMENTS (adult normal given) AC root (d.<3.7cm) 2.9 cm LV Septum d (<1.2 cm> 1.2 cm Valve Excursion 1.9 cm LV Septum (systole) 1.9 cm Left Atria (s.<4.0cm> 4.3 cm LVPW d(<1.2cm) 1.1 cm RV (d.<2.3cm) 2.9 cm LVPW (sytole) 1.8 cm LV diastole(<5.6CM) 6.2 cm MV E-F(>70mm/sec) cm LV systole 2.7 cm LVOT Diameter 1.8 cm MV exc.(>10mm) cm Est.ejection fraction (50-75%) % DOPPLER: LVIT cm/sec A 37.0 cm/sec E 90.0 cm/sec LA cm/sec RVSP 32.0 mmHg LVOT 97.0 cm/sec AOP1/2T m/s Asc. Ao 145 cm/sec RVOT 57.0 cm/sec RA cm/sec PA 105 cm/sec AV Gradient Peak 8.4 mmHg AV Mean 4.4 mmHg AV Area 1.7 cm MV Gradient Peak 4.1 mmHg MV Mean 1.3 mmHg MV Area cm COMMENTS: OP - HC Rn Informatics: 1 MORIS ETNA Bellstand Attendant: 3 Dr. Day TAPE# PACS Pericardial Effusion N DATE OF SERVICE: Adequate 2D, color flow, spectral Doppler, and M-Mode. No LVH. LV internal dimension is normal. Wall motion normal. EF is greater than or equal to 55%. Aortic valve is tricuspid. No evidence of stenosis by Doppler interrogation. Left atrium is mildly dilated at 4.3 cm. Mitral valve shows no prolapse. Trace MR. Right-sided chamber is grossly normal. Trace TR. TRANSINT:[id number] Voice Confirmation ID: [id number] DOCUMENT ID: [id number] ECHOCARDIOGRAM REPORT [id number] PRIETO ANDREWS,JERAMY Phillips MD at 1503 CC: [id number] DICTATION DATE: 08/01/18 1245 ROOF MECHANIC: 08/01/18 1251 DEP CLI 07/29/18 [place] [id number]
== END | disposition home or self-care (01) ==
LOC: D.HCCARDIO 07-15 10:00
PROVIDERS: ATTEND Internal Medicine Interventional Cardiology
DX: R01.1 Cardiac murmur, unspecified (principal)